=== PATIENT | male | born 1955 | race Native Hawaiian/Other Pacific Islander ===

== ENCOUNTER 2018-08-29 03:30 | Emergency (ER) | payer OTHER ==
[~2018-08-29] VITALS: Ht 177.8 cm; Wt 113.4 kg
[2018-08-29 04:06] LABS: PLATELET COUNT 243 K/uL (142-355)
[2018-08-29 04:15] LABS: POTASSIUM 4.5 mmol/L (3.6-5.2)
[2018-08-29 06:39] VITALS: BP 115/82; TEMP 97.6
== END 2018-08-29 06:47 | disposition home or self-care (01) ==
LOC: ED 03:30
PROVIDERS: Emergency Medicine
DX: M79.18 Myalgia, other site (principal); R07.81 Pleurodynia; R07.89 Other chest pain; J18.9 Pneumonia, unspecified organism
CPT/HCPCS: 36415; 74022; 80053; 85027; 85379; 96372; 99283; J1885